=== PATIENT | male | born 1960 | race Caucasian/White ===

== ENCOUNTER 2024-08-02 18:37 | Emergency (ER) | payer OTHER, SELFPAY ==
[2024-08-02 18:38] VITALS: BMI 54.8
[2024-08-02 18:40] VITALS: BP 157/86
[2024-08-02 19:22] LABS: Hematocrit 40.8 % (39.0-52.0); Hemoglobin 13.8 g/dL (13.0-18.0); Mean Corp Hgb Conc. 33.8 g/dL (33.0-37.0); Mean Corpuscular Hgb 30.9 pg (27.0-31.0); Mean Corpuscular Volume 91.3 fL (80.0-94.0); Mean Platelet Volume 9.7 fL (7.4-10.4); Platelet Count 211 10^3/uL (130-400); Red Blood Cell Count 4.47 10^6/uL (4.70-6.10); White Blood Cell Count 8.9 10^3/uL (4.8-10.8)
[2024-08-02 19:23] LABS: Absolute Neutrophils -Man Diff 4.4 10^3/uL (1.4-6.5); Atypical Lymphocytes 5 %; Band Neutrophils 0 % (0-3); Lymphocytes 35 % (20-51); Monocytes 7 % (2-9); Normal RBC Morphology Yes; Platelets Checked Yes; Segmented Neutrophils 50 % (42-75); Total Cells Counted 100
[2024-08-02 19:24] LABS: ALT (SGPT) 21 U/L (0-50); AST (SGOT) 22 U/L (17-59); Albumin 4.3 g/dl (3.5-5.0); Alkaline Phosphatase 76 U/L (38-126); Blood Urea Nitrogen 26 mg/dl (9-20); Calcium 9.3 mg/dl (8.4-10.2); Carbon Dioxide 26 mmol/L (22-30); Chloride 102 mmol/L (98-107); Glucose 122 mg/dl (70-99); Potassium 4.4 mmol/L (3.5-5.1); Sodium 140 mmol/L (135-145); Total Bilirubin 0.5 mg/dl (0.2-1.3); eGFR > 60.00
[2024-08-02 20:00] VITALS: BP 126/63
--- NOTE | 2024-08-02 20:14 | ED.GENMED ---
History of Present Illness
General
Chief Complaint: Skin Problem
Time Seen by Provider: 08/02/24 20:14
History of Present Illness
History of Present Illness:
HPI: Patient presents with right lower extremity swelling, redness, pain. He is a diabetic. This has been ongoing for the past 2 days. He saw primary care today. The primary sent him here for further evaluation including wanting an ultrasound of
the right lower extremity and for the ER to consider joint aspiration of the toe to evaluate for crystals.
EXAM:
GENERAL: Well appearing in no distress
HEENT: Moist oral mucosa
CARDIOVASCULAR: No murmurs, normal heart rate, regular rhythm, No chest wall tenderness
PULMONARY: No respiratory distress, breath sounds are clear and equal
ABDOMEN: Soft with no peritoneal signs, no tenderness
NEUROLOGIC: Excellent strength all extremities, no coordination deficits
PSYCHIATRIC: Appropriate mental status, normal insight and judgement
EXTREMITIES: Nontender, mild right lower extremity distal edema, moves all extremities equally, there is also mild prominence/edema and erythema consistent with gout at the right first MTP
SKIN: Erythema and warmth noted at the right first MTP joint and at the region between ankle and galloway, there is no involvement of the left lower extremity
TIME OF INITIAL ENCOUNTER:
NUMBER AND COMPLEXITY OF PROBLEMS ADDRESSED AT THE ENCOUNTER
� Chronic conditions affecting care: Diabetes, high blood pressure
� Acute Exacerbation and/or Progression of Chronic Illness: This is an acute
� Differential Diagnosis includes: Gout, cellulitis, doubt DVT but will check ultrasound
AMOUNT AND/OR COMPLEXITY OF DATA TO BE REVIEWED AND ANALYZED
� I performed an independent evaluation of and my interpretation is:
EKG:
CT:
X-rays:
Laboratory Studies: White count 8.9, hemoglobin 13.8, chemistries unremarkable
Other: Ultrasound imaging shows no evidence of DVT
� Review of other/old records: No old records available for review in [facility]
� Clinical information was obtained by an independent historian: I spoke to the daughter at bedside who is also translating without difficulty
� Prescriptions/Medications Considered but not given: Considered steroids�primary care doctor had already prescribed apparently this is out of stock at the local
� Further testing considered but not performed: Although primary suggested that we perform arthrocentesis of the joint, I do not feel this is necessary as I do suspect he does have at least a component of gout and he is already a
diabetic and I do not want to introduce/make an infection worse
RISK OF COMPLICATIONS AND/OR MORBIDITY OR MORTALITY OF PATIENT MANAGEMENT
� Social determinants of health affecting care: Lives at home
� Discussion with other providers:
� Escalation of care including admission/observation vs risk of discharge considered: Toradol was given and he does feel improvement. We also gave IV Ancef. Sending prescription to his pharmacy. He does have some NSAIDs at
home.
Phy Exam
Physical Exam
Physical Exam:
See HPI
Course
Orders/Labs/Results
Orders:
Orders
08/02/24 18:47
Complete Blood Count/With Diff Urgent
Comprehensive Metabolic Panel Urgent
Manual Differential Urgent
08/02/24 20:24
Ketorolac [Toradol] 15 mg IV NOW STA
US Periph Venous LOWER Ext RT Urgent
Comment:
Reason For Exam: swelling
08/02/24 20:25
CeFAZolin 2 GRAM [Ancef] 2 grams in 10 ml IV NOW
Abnormal Lab Results
08/02/24
18:47
RBC 4.47 L 10^6/uL
(4.70-6.10)
BUN 26 H mg/dl
(9-20)
Glucose 122 H mg/dl
(70-99)
08/02/24 18:47
08/02/24 18:47
Vital Signs
Initial and Last Documented VS:
Initial Vital Signs
Temp Pulse Resp BP Pulse Ox
98.4 F 66 18 157/86 97
08/02/24 18:40 08/02/24 18:40 08/02/24 18:40 08/02/24 18:40 08/02/24 18:40
Last Documented Vital Signs
Temp Pulse Resp BP Pulse Ox
98.4 F 65 22 106/53 95
08/02/24 18:40 08/02/24 21:41 08/02/24 21:41 08/02/24 21:41 08/02/24 21:41
*Critical Care Note
Total Time (30-74mins, 75-104mins- exclusive of procedures): Not Applicable
ED Attending Note
-
Portions of this chart may have been created with voice recognition software.� Occasional wrong word or��sound alike� substitutions may have occurred due to the inherent limitations of voice recognition software.
Discharge Plan
Departure
Patient Disposition: Home (Routine Discharge)
Date of Disposition: 08/02/24
Time of Disposition: 22:20
Patient with high blood pressure during this ER visit?: Yes
Discharge Problem:
Cellulitis, Gout
Instructions: Cellulitis (Skin Infection), Adult (DC), Gout ED
Prescriptions:
New
cephalexin 500 mg tablet
500 mg PO QID Qty: 28 0RF
Referrals:
PRIVATE,PHYSICIAN [Family Provider] -
Activity Restrictions/Additional Instructions:
Your symptoms are likely related to both gout and cellulitis. Cellulitis means infection of the tissue underneath the skin. Your white blood cell count is normal and you do not have a fever. However since you are a diabetic I still remain
concerned about infection. I have given a dose of IV Ancef and I am sending a prescription to your pharmacy for Keflex. Regarding the gout, you can continue taking the ibuprofen (Motrin) 600 mg no more than 4 times per day. Please follow-up with
your primary care doctor. If you run out of the prescription Motrin, I recommend 3-4 [id number] ibuprofen (Motrin) every 8 hours with food for a few days. Return here if worse. The ultrasound shows no blood clot in the leg
Interventions
Interventions:
*Risk Screen - Suicide Last Done: 08/02/24 18:38
*General Assessment Last Done: 08/02/24 18:40
ED-Skin Assessment Last Done: 08/02/24 20:45
Discharge Date and Time
Print Language: SLOVAK
[2024-08-02] MEDS: ANCEF 10 IV (21:36)
[2024-08-02] MEDS: TORADOL 15 MG IV (21:36)
[2024-08-02 21:41] VITALS: BP 106/53
[2024-08-02 22:37] VITALS: BP 114/56
== END 2024-08-02 22:43 | disposition home or self-care (01) ==
LOC: EMR 18:37
PROVIDERS: Student in an Organized Health Care Education/Training Program; EMERGENCY PHYSICIAN Emergency Medicine
DX: M10.9 Gout, unspecified (principal); L03.115 Cellulitis of right lower limb; R60.0 Localized edema; R03.0 Elevated blood-pressure reading, without diagnosis of hypertension; E11.9 Type 2 diabetes mellitus without complications
CPT/HCPCS: 99284; 96374; 96375; 80053; 85025; 93971